=== PATIENT | male | born 1970 | race African-American/Black ===

== ENCOUNTER 2020-02-12 06:51 | Inpatient (IN) | payer MEDICARE, OTHER ==
[2020-02-08 11:45] LABS: BASOPHILS # (AUTO) 0.1 (0.0-0.1); BASOPHILS % 0.6 % (0.0-1.0); EOSINOPHILS # (AUTO) 0.1 (0.0-0.4); EOSINOPHILS % 1.4 % (0.0-6.0); HEMATOCRIT 42.1 % (38.2-49.6); HEMOGLOBIN 13.8 g/dL (14.0-18.0); LYMPHOCYTES # (AUTO) 2.3 (1.0-3.2); LYMPHOCYTES % 27.8 % (18.0-39.1); MEAN CORPUSCULAR HEMOGLOBIN 27.6 pg (28-32); MEAN CORPUSCULAR HGB CONC 32.8 g/dL (31-35); MEAN CORPUSCULAR VOLUME 84.2 fL (81-99); MONOCYTES # (AUTO) 0.5 (0.2-0.8); MONOCYTES % 5.8 % (4.4-11.3); NEUTROPHILS # (AUTO) 5.2 (2.1-6.9); PLATELET COUNT 252 x10e3/uL (140-360); RED CELL DISTRIBUTION WIDTH 13.1 % (11.7-14.4)
[2020-02-08 12:12] LABS: ANION GAP 15.7 mmol/L (8-16); BLOOD UREA NITROGEN 11 mg/dL (7-26); BUN/CREATININE RATIO 11 (6-25); CALCIUM 9.5 mg/dL (8.4-10.2); CARBON DIOXIDE 20 mmol/L (22-29); CHLORIDE 107 mmol/L (98-107); CREATININE, SERUM 0.96 mg/dL (0.72-1.25); EST GLOMERULAR FILTRATION RATE > 60 ML/MIN (60-); GLUCOSE 100 mg/dL (74-118); POTASSIUM 3.7 mmol/L (3.5-5.1); SODIUM 139 mmol/L (136-145)
[~2020-02-12] VITALS: Ht 182.9 cm; Wt 152.4 kg
[~2020-02-12 06:51] MED LIST: ATORVASTATIN CA10 MG PO; GABAPENTIN100 MG PO; GLIMEPIRIDE2 MG PO; LISINOPRIL10 MG PO; METFORMIN HCL500 MG PO; PERCOCET 10-321 EACH PO; TRIAMTERENE-HCTZ1 EA PO
[2020-02-12] MEDS ORDERED: CEFAZOLIN SOD 1 GM/NS 50ML 100 ML IV ONE (07:05)
[2020-02-12] MEDS ORDERED: ONDANSETRON HCL INJ 2MG/ML 2ML 2 MG/ML VIAL IV PRN (07:45)
[2020-02-12] MEDS ORDERED: SCOPOLAMINE 1.5 MG PATCH TOP SCH (07:45)
[2020-02-12] MEDS ORDERED: BUPIVACAINE 0.25% 30ML SDV INJ ONE (08:23)
[2020-02-12] MEDS ORDERED: SCOPOLAMINE 1.5 MG PATCH ONE (10:02)
[2020-02-12] MEDS ORDERED: HYDROMORPHONE 1MG/1ML INJ ONE (12:39)
[2020-02-12 13:38] VITALS: BP 141/86
--- NOTE | 2020-02-12 13:42 | Operative Report ---
DATE OF PROCEDURE: 02/12/2020 SURGEON: Beltran Quach MD PREOPERATIVE DIAGNOSES: 1. Morbid obesity, BMI 51. 2. Type 2 diabetes mellitus. 3. Obstructive sleep apnea, on CPAP. 4. Hypertension. POSTOPERATIVE DIAGNOSES: 1. Morbid obesity, BMI 51. 2. Type 2 diabetes mellitus. 3. Obstructive sleep apnea, on CPAP. 4. Hypertension. PREOPERATIVE INDICATION: Treat disease, prevent complications related to comorbid conditions of obesity. PROCEDURES: Laparoscopic Charly-en-Y gastric bypass (150 cm antecolic antegastric Charly limb). ANESTHESIA: General. LAY OUT TECHNICIAN: Kemal Russell surgical 1st therapeutic assistant (needed due to complexity of case). FLUIDS: 1400 mL of crystalloid. ESTIMATED BLOOD LOSS: 20 mL. DRAINS: None. COMPLICATIONS: None. SPECIMENS: None. GRAFTS: None. FINDINGS: 1. Normal upper GI anatomy. 2. Negative intraoperative leak test. PROCEDURE IN DETAIL: The patient was brought to the operating room and was intubated under general endotracheal anesthesia. He was positioned supine with both arms abducted and all pressure points were appropriately padded. He was sterilely prepped and draped in the usual fashion. A preprocedure pause was performed identifying the patient, use of perioperative antibiotics, intended procedure, and staff surgeon. Access was gained via a 5 mm left subcostal incision using a Veress needle. The abdomen was insufflated to a pressure of 15 mmHg pressure. Four additional trocars were placed in standard positions. We used a longer trocars due to the patient's thick abdominal wall, which made supplied a lot more torque and made the dissection a little bit more difficult. I then incised the gastrohepatic ligament at the level of the lesser curvature and ligated the vessels of the left gastric descending branches of the left gastric vessels being careful to preserve the left gastric pedicle. Vessels were ligated up to the point of the lesser curve of the stomach. I then, fired a 60 mm [employer] purple load stapler and a 90-degree angle at the lesser curvature of stomach just distal to the left gastric vessels and then continued firing more staple loads to construct a 30 mL of volume pouch. The proximal staple line was oversewn with 2-0 Surgidac suture in a Lembert fashion. Next, I divided the small intestine 50 cm distal to the ligament of Treitz for a biliopancreatic limb and measured 150 cm distal to this for Charly limb and an end-to-side jejunojejunostomy between the Charly limb and the biliopancreatic limb. Anti-obstruction sutures were placed on either end of the anastomosis. The common enterotomy site was also stapled off. The mesentery defect was closed with 2-0 Surgidac suture in a continuous fashion. Next, I split the omentum using the [place] LigaSure device to decrease tension on the Charly limb. The Charly limb was brought up and a posterior layer between the Charly limb and the gastric pouch was done with 2-0 Surgidac suture in a Lembert fashion. Enterotomies were made in the stomach and the Charly limb and a linear anastomosis at 3 cm was done with a purple load stapler. The common enterotomy site was oversewn with 2-0 Polysorb suture beginning on either end of the anastomosis and tying it in the middle over an adult-sized endoscope, which was used as a bougie. I then, oversewed the suture line with 2-0 Surgidac suture in a Lembert fashion. We did a leak test, no leaks were identified. I placed 5 mL of Evicel solution over the anastomosis for further protection. Next, I closed Elise defect with 2-0 Surgidac suture in a continuous fashion. We closed the large port site with 0 Vicryl suture using a Lloyd Shine technique. We then removed the liver retractor, desufflated the abdomen, removed the trocars. Incision sites were closed with 4-0 Monocryl suture in a subcuticular fashion. Dermabond dressings were applied. A 0.25% bupivacaine was used both at the preperitoneal incision sites. The patient tolerated the procedure well. Type of wound was type 2, clean, contaminate. All surgical sponge and instrument counts were correct. Beltran Quach MD Jefferson/DUYEN /[id number]
[2020-02-12 14:00] VITALS: BP 141/86
--- NOTE | 2020-02-12 14:20 | NUR ---
PATIENT ARRIVED AT APPROXIMATELY 1338. AWAKE AND ALERT. ACYANOTIC. NO DISTRESS NOTED. CALL LIGHT IN REACH. SIDE RAILS UP X2. BED LOW. SIGNIFICANT OTHER AT BEDSIDE.
[2020-02-12] MEDS ORDERED: EPHEDRINE SULFATE INJ 50 MG/ML VIAL ONE (14:47)
[2020-02-12] MEDS ORDERED: ONDANSETRON HCL INJ 2MG/ML 2ML 2 MG/ML VIAL ONE (14:47)
[2020-02-12] MEDS ORDERED: ACETAMINOPHEN 1000 MG/100 ML IV ONE (14:47)
[2020-02-12] MEDS ORDERED: NEOSTIGMINE 1 MG/ML 10ML VIAL ONE (14:47)
[2020-02-12] MEDS ORDERED: SEVOFLURANE INHAL SOLN 250 ML PEN BTL ONE (14:47)
[2020-02-12] MEDS ORDERED: DEXAMETHASONE SOD PHOS INJ 4 MG/ML VIAL ONE (14:47)
[2020-02-12] MEDS ORDERED: ROCURONIUM BROMIDE 10 MG/ML 5ML VIAL IV ONE (14:47)
[2020-02-12] MEDS ORDERED: GLYCOPYRROLATE INJ 0.2 MG/ML VIAL ONE (14:47)
[2020-02-12] MEDS ORDERED: LIDOCAINE HCL 2% LOCAL INJ 5 ML SDV VIAL INJ ONE (14:47)
[2020-02-12] MEDS ORDERED: PROPOFOL IV EMULSION 10 MG/ML 20 ML VIAL ONE (14:47)
--- NOTE | 2020-02-12 15:17 | History and Physical ---
CHIEF COMPLAINT: "I had weight loss surgery" HISTORY OF PRESENT ILLNESS: This is a 49-year-old man, who was admitted to [facility] with a diagnosis of extreme obesity, BMI 45, complicating underlying hypertension, type 2, tenderness, and obstructive sleep apnea. Today, the patient underwent successful laparoscopic Charly-en-Y gastric bypass, that was performed by Dr. Beltran Quach. The patient tolerated surgery quite well. During the surgery, the patient underwent intraoperative EGD, which revealed a normal upper GI anatomy with negative intraoperative leak test. The patient underwent blood work on February 08, 2020, and complete blood count was unremarkable. The patient's hemoglobin 13.8 g/dL. White blood cell count was 8100 with normal differential. The patient's BUN and creatinine were 11 and 0.96 respectively. Potassium 3.7. The patient states he does have some abdominal discomfort at this time. He denies any nausea or vomiting. The patient also denies any flatus or belching. REVIEW OF SYSTEMS: GENERAL: Weight has been stable. No fever or chills. HEENT: No headaches. No visual changes. CARDIOVASCULAR: NO chest pain. No short of breath or cough. He snores heavily and he does not use a CPAP machine at night according to his female significant other. ABDOMEN: Complains of some abdominal discomfort. Denies any nausea, vomiting, or diarrhea. He has not had any bowel movement. Denies any flatus or eructation. : No Priest catheter in place. NEUROMUSCULAR: No limb weakness or numbness. ALLERGIES: MORPHINE. HOME MEDICATIONS: 1. Atorvastatin 10 mg at bedtime. 2. Gabapentin 100 mg daily. 3. Glimepiride 4 mg b.i.d. 4. Lisinopril 10 mg at bedtime. 5. Metformin 1000 mg b.i.d. 6. Oxycodone/acetaminophen 10/325 one daily as needed for severe pain. 7. Triamterene/hydrochlorothiazide 37.5/25 once daily. PAST SURGICAL HISTORY: 1. Laparoscopic Charly-en-Y gastric bypass today. 2. Lumbar spine surgery, many years ago. FAMILY HISTORY: Twin brother with hypertension and diabetes, also. PAST MEDICAL HISTORY: 1. Extreme obesity, BMI 45. 2. Hypertensive heart disease. 3. Type 2 diabetes mellitus. 4. Hyperlipidemia. 5. Diabetic peripheral neuropathy. SOCIAL HISTORY: Single, but he does live with his female significant other. He does not smoke tobacco. The patient states he drinks alcohol socially. He is retired. PHYSICAL EXAMINATION: GENERAL: He is somnolent, but arousable. He does not appear to be in distress. His female significant other is at bedside. She provided most of the medical history. VITAL SIGNS: He is 6 feet 0 inches, weight is 340 pounds. BMI 45. Blood pressure is 140/86, pulse 82, respiratory rate 18, temperature 97.8, and oxygen saturation 96% on room air. INTEGUMENT: Skin is warm and dry. No pallor, jaundice, or diaphoresis. HEENT: Anterior sclerae with moist mucous membranes. NECK: Supple. CARDIOVASCULAR: Distant heart sounds. Regular rate and rhythm. LUNGS: No rales. No rhonchi. ABDOMEN: Obese, benign. No bowel sounds are auscultated. The patient's laparoscopic incisions are sealed with Dermabond. They are clean, dry, and intact. No drainage appreciated. EXTREMITIES: No edema or deformity. He is currently wearing sequential compression devices, lower legs. NEUROLOGIC: Intact. DIAGNOSES: 1. Extreme obesity, BMI 45 complicating underlying hypertension, diabetes and sleep apnea. 2. Status post laparoscopic Charly-en-Y gastric bypass. 3. Hypertensive heart disease. 4. Type 2 diagnosis mellitus. 5. Obstructive sleep apnea. PLAN: 1. Intravenous fluids. 2. We will continue blood pressure medications with small sips of water. 3. Blood pressure monitoring and control. 4. Blood glucose monitoring and control. 5. Encourage incentive spirometer usage to prevent atelectasis. 6. We will start enoxaparin this evening to prevent deep venous thrombosis and pulmonary embolisms. 7. We will mobilize patient. I would like to thank, Dr. Quach, for involving me in the care of this patient. I spent 40 minutes in the care of this patient. MD NICANOR Subramanian/DUYEN /[id number] MTDGregory
[2020-02-12] MEDS: SODIUM CHLORIDE 0.9% 1000ML 1,000 ML IV SCH ×2 (15:36→21:08)
[2020-02-12] MEDS: MORPHINE SULFATE 2 MG/ML SYR 1ML IV PRN ×3 (15:38→22:25)
[2020-02-12 16:00] VITALS: BP 130/67
--- NOTE | 2020-02-12 17:44 | NUR ---
Nutrition Screen Note RD Recommendation for Physician: -Recommend advancing to bariatric diet when medically appropriate Plan of Care: RD following, monitoring for tolerance and adequacy Nutrition reason for involvement: MD Consult for bariatric diet education Primary Diagnose(s): laparoscopic Charly-en-Y gastric bypass surgery PMH: Extreme obesity, Hypertensive heart disease, Type 2 diabetes mellitus, Hyperlipidemia, Diabetic peripheral neuropathy Ht: 72 in Wt: 336 lb BMI: 45.6 kg/m2 IBW:[address] Assessment: (02/12/20) Chart reviewed. Labs and meds reviewed. Pt is a 49 year old male admitted for laparoscopic Charly-en-Y gastric bypass surgery. Pt was sleeping at time of visit; therefore, spoke to family member at bedside who reported pt did not have any appetite changes prior to admission and had been trying to lose weight. Provided family member with bariatric diet education materials. Will continue to monitor Current Diet: NPO Malnutrition Evaluation (02/12/20) The patient does not meet criteria for a specified degree of malnutrition at this time. Will re-evaluate at follow-up as appropriate. Diet Education Needs Assessment: Diet education indicated, Learner(s): family member Barriers: none Cultural/Language Modifications: No cultural/language modifications noted Readiness: acceptance Method: explanation/ discussion, handout Topics: Bariatric diet (clear liquid, full liquid, pureed) Understanding/Compliance: good compliance expected, needs reinforcement at outpatient bariatric clinic, all questions have been answered Nutrition Care Level: low Signed: Maddy Baca, RD, LD
[2020-02-12 20:00] VITALS: BP 125/80
[2020-02-12 21:00] VITALS: BP 125/80
[2020-02-12] MEDS: ENOXAPARIN SOD INJ 40 MG/0.4 ML SYR SC SCH (21:08)
[2020-02-13] VITALS: BP 147/84
[2020-02-13 04:00] VITALS: BP 98/71
[2020-02-13 05:56] LABS: BASOPHILS % 0.2 % (0.0-1.0); HEMATOCRIT 42.4 % (38.2-49.6); HEMOGLOBIN 13.6 g/dL (14.0-18.0); LYMPHOCYTES # (AUTO) 2.1 (1.0-3.2); LYMPHOCYTES % 17.1 % (18.0-39.1); MEAN CORPUSCULAR HEMOGLOBIN 27.4 pg (28-32); MEAN CORPUSCULAR HGB CONC 32.1 g/dL (31-35); MEAN CORPUSCULAR VOLUME 85.3 fL (81-99); MONOCYTES # (AUTO) 0.9 (0.2-0.8); MONOCYTES % 7.3 % (4.4-11.3); NEUTROPHILS # (AUTO) 9.1 (2.1-6.9); PLATELET COUNT 240 x10e3/uL (140-360); RED BLOOD COUNT 4.97 x10e6/uL (4.3-5.7); RED CELL DISTRIBUTION WIDTH 13.5 % (11.7-14.4)
[2020-02-13 06:16] LABS: ALANINE AMINOTRANSFERASE 52 IU/L (0-55); ALBUMIN 3.4 g/dL (3.5-5.0); ALBUMIN/GLOBULIN RATIO 0.9 (0.8-2.0); ALKALINE PHOSPHATASE 57 IU/L (40-150); ANION GAP 13.9 mmol/L (8-16); BLOOD UREA NITROGEN 8 mg/dL (7-26); BUN/CREATININE RATIO 9 (6-25); CALCIUM 9.1 mg/dL (8.4-10.2); CARBON DIOXIDE 25 mmol/L (22-29); CHLORIDE 106 mmol/L (98-107); CREATININE, SERUM 0.89 mg/dL (0.72-1.25); EST GLOMERULAR FILTRATION RATE > 60 ML/MIN (60-); GLUCOSE 107 mg/dL (74-118); MAGNESIUM 1.8 MG/DL (1.3-2.1); PHOSPHORUS 3.2 MG/DL (2.3-4.7); POTASSIUM 3.9 mmol/L (3.5-5.1); SODIUM 141 mmol/L (136-145)
--- NOTE | 2020-02-13 07:17 | NUR ---
Bedside report and walking rounds completed with oncoming nurse. Patient in bed with call light within reach. No issue or concerns noted.
[2020-02-13] MEDS: SODIUM CHLORIDE 0.9% 1000ML 1,000 ML IV SCH (07:23)
--- NOTE | 2020-02-13 07:23 | NUR ---
ASSUMED CARE. AAOX3. PATIENT RESTING IN BED QUIETLY. ACYANOTIC. NO DISTRESS NOTED. CALL LIGHT IN REACH. SIDE RAILS UP X2. BED LOW.
[2020-02-13] MEDS ORDERED: HYDROCODONE/APAP 7.5MG-325MG 1 EA TAB PO PRN (07:45)
[2020-02-13] MEDS: ENOXAPARIN SOD INJ 40 MG/0.4 ML SYR SC SCH (08:00)
[2020-02-13 08:19] VITALS: BP 100/42
--- NOTE | 2020-02-13 08:22 | NUR ---
S: No major complaints O: AF, VSS General- no distress Abd- soft, incisions clean, dry and intact A/P: POD 1, s/p Lap braulio en y gastric bypass -Clears, ambulate, IS, OOB to chair -DC Home today -Diet and f/u instructions given to patient
[2020-02-13 08:56] VITALS: BP 100/42
[2020-02-13] MEDS: MORPHINE SULFATE 2 MG/ML SYR 1ML IV PRN (09:45)
--- NOTE | 2020-02-13 09:56 | Discharge Summary ---
ADMITTING DIAGNOSES: 1. Extreme obesity, BMI 45, complicating underlying hypertension, type 2 diabetes mellitus and sleep apnea. 2. Hypertensive heart disease. 3. Type 2 diabetes mellitus. 4. Obstructive sleep apnea. DISCHARGE DIAGNOSES: 1. Status post laparoscopic Charly-en-Y gastric bypass. 2. Extreme obesity, BMI 45, complicating underlying hypertension, diabetes, and sleep apnea. 3. Hypertensive heart disease. 4. Type 2 diabetes mellitus. 5. Obstructive sleep apnea. HOSPITAL COURSE: This is a 49-year-old man, who was initially admitted to [facility], diagnosed with extreme obesity. BMI 45, complicating underlying hypertension, diabetes, and sleep apnea. During this hospitalization, the patient underwent successful laparoscopic Charly-en-Y gastric bypass that was performed by Dr. Beltran Quach. The patient's glimepiride was held during this hospitalization because of the risk of hypoglycemia. On discharge, he is tolerating clear liquid diet. DISCHARGE MEDICATIONS: 1. Atorvastatin 10 mg at bedtime. 2. Gabapentin 100 mg daily. 3. Lisinopril 10 mg every night. 4. Metformin 1000 mg b.i.d. 5. Oxycodone/acetaminophen 10/325 one daily as needed for severe pain. 6. Triamterene/hydrochlorothiazide 37.5/25 once daily. 7. Tylenol No.3 one pill every 4 hours p.r.n. pain, 25 prescribed, no refills. 8. Zofran 4 mg one tablet every 6 hours p.r.n. pain, 20 prescribed, no refills. 9. The patient was previously on glimepiride 4 mg twice a day but he was told to hold his medication until he starts eating a regular diet. FOLLOWUP INSTRUCTIONS: The patient was instructed to follow up with Dr. Beltran Quach within 1 week and with primary care physician in 2 weeks. MD NICANOR Subramanian/DUYEN /[id number]
== END 2020-02-13 10:40 | disposition home or self-care (01) | DRG 621 ==
LOC: OR 06:51 → PACU V 13:26 → MED/SURG 14:02
PROVIDERS: ADMIT Internal Medicine; ATTEND Internal Medicine
PROC: 0D164ZA Bypass Stomach to Jejunum, Percutaneous Endoscopic Approach (ICD-10-PCS; principal; 2020-02-12 09:00)
DX: E66.01 Morbid (severe) obesity due to excess calories (principal); G47.33 Obstructive sleep apnea (adult) (pediatric); E78.5 Hyperlipidemia, unspecified; E11.42 Type 2 diabetes mellitus with diabetic polyneuropathy; Z79.84 Long term (current) use of oral hypoglycemic drugs; Z68.42 Body mass index [BMI] 45.0-49.9, adult; Z83.3 Family history of diabetes mellitus; Z82.49 Family history of ischemic heart disease and other diseases of the circulatory system; I11.9 Hypertensive heart disease without heart failure; Z11.59 Encounter for screening for other viral diseases
CPT/HCPCS: 36415; 80048; 80053; 82948; 83735; 84100; 85025; 87635; 93005; J0690; J1100; J1170; J1650; J2001; J2270; J2405; J2710; J7030